=== PATIENT | female | born 1980 | race Caucasian/White ===

== ENCOUNTER 2020-08-06 18:44 | Emergency (ER) | payer BC, MEDICAID ==
[~2020-08-06] VITALS: Ht 162.6 cm; Wt 73.0 kg
[2020-08-06 20:34] LABS: BASOPHILS % 0.6 % (0.0-2.0); EOSINOPHILS % 0.8 % (0.0-5.0); HEMATOCRIT. 39.2 % (36.0-48.0); HEMOGLOBIN. 12.6 g/dL (12.0-16.0); LYMPHOCYTES % 28.5 % (20.0-50.0); MEAN CORPUSCULAR HEMOGLOBIN 28.1 pg (28.0-32.0); MEAN CORPUSCULAR VOLUME 87.6 fL (81.0-99.0); MEAN PLATELET VOLUME 8.6 fl (7.4-10.4); MONOCYTES % 5.3 % (2.0-8.0); NEUTROPHILS % 64.8 % (40.0-76.0); PLATELET 364 x1000/uL (130-400); RED BLOOD CELL COUNT 4.47 mill/uL (4.2-5.4); RED CELL DISTRIBUTION WIDTH 14.2 % (11.6-14.6)
[2020-08-06 20:41] LABS: CLARITY URINE CLEAR (CLEAR); COLOR URINE YELLOW (YELLOW); KETONES URINE NEGATIVE (NEGATIVE); LEUKOCYTE ESTERASE URINE TRACE (NEGATIVE); NITRITE URINE NEGATIVE (NEGATIVE); OCCULT BLOOD URINE NEGATIVE (NEGATIVE); PH URINE 7.5 (4.5-8.0); PROTEIN URINE NEGATIVE (NEGATIVE); SPECIFIC GRAVITY URINE 1.016 (1.005-1.030)
[2020-08-06 20:43] LABS: CHLORIDE 106 mEq/L (98-107)
[2020-08-06 20:52] LABS: PROTHROMBIN TIME 10.5 sec (9.6-11.0)
[2020-08-06] MEDS ORDERED: ACETAMINOPHEN 650MG/20.3ML UDC PO ONE (21:00)
[2020-08-06 21:03] LABS: HCG SCREEN NEGATIVE
[2020-08-06 22:42] VITALS: BP 117/76
== END 2020-08-06 23:03 | disposition home or self-care (01) ==
LOC: ER 18:44
DX: K81.9 Cholecystitis, unspecified (principal); E03.9 Hypothyroidism, unspecified; E28.2 Polycystic ovarian syndrome
CPT/HCPCS: 36415; 76705; 80053; 81003; 81025; 83605; 84703; 85025; 99284

== ENCOUNTER → 2020-08-25 | Outpatient (CLI) | payer BC ==
[~2020-08-25] MED LIST: CEFAZOLIN SODIUM 1000MG/VIAL ONE; DEXAMETHASONE 4MG/ML 1ML VIAL ONE; ETHI1TAB18 PO; FENTANYL CITRATE/PF 50MCG/ML 2ML VIAL ONE; GLYCOPYRROLATE 0.2 MG/ML 2ML VIAL ONE; KETOROLAC 30MG/ML VIAL ONE; LEVO50TA8 PO; LEVO75TA7 PO; MIDAZOLAM HCL 2 MG/2 ML VIAL ONE; NEOSTIGMINE METHYLSULFATE 1MG/ML 10 ML VIAL ONE; PHENYLEPHRINE HCL 10 MG/ML 1ML (IV VIAL) IV ONE; PROPOFOL 200MG/20ML VIAL IV ONE; SODIUM CHLORIDE 0.9% 10ML VIAL ONE; SUCCINYLCHOLINE CHLORIDE 200MG/10ML IV ONE; VECURONIUM BROMIDE 10 MG/VIAL IV ONE
== END | disposition home or self-care (01) ==
LOC: LAB 10:28
DX: Z01.812 Encounter for preprocedural laboratory examination (principal); Z20.822 Contact with and (suspected) exposure to COVID-19
CPT/HCPCS: 87426

== ENCOUNTER → 2020-08-26 | Day surgery (SDC) | payer BC ==
[~2020-08-26] VITALS: Ht 162.6 cm; Wt 70.3 kg
[~2020-08-26] MED LIST changes: +ACETAMINOPHEN 500MG TABLET PO NR; +BUPIVACAINE HCL 0.5% (5MG/ML) 50ML ONE; -CEFAZOLIN SODIUM 1000MG/VIAL ONE; -DEXAMETHASONE 4MG/ML 1ML VIAL ONE; -FENTANYL CITRATE/PF 50MCG/ML 2ML VIAL ONE; -GLYCOPYRROLATE 0.2 MG/ML 2ML VIAL ONE; -KETOROLAC 30MG/ML VIAL ONE; +LACTATED RINGERS 1,000 ML IV SCH; -MIDAZOLAM HCL 2 MG/2 ML VIAL ONE; -NEOSTIGMINE METHYLSULFATE 1MG/ML 10 ML VIAL ONE; -PHENYLEPHRINE HCL 10 MG/ML 1ML (IV VIAL) IV ONE; -PROPOFOL 200MG/20ML VIAL IV ONE; +SKIN ADHESIVE 0.7 GM EA TOP ONE; -SODIUM CHLORIDE 0.9% 10ML VIAL ONE; -SUCCINYLCHOLINE CHLORIDE 200MG/10ML IV ONE; -VECURONIUM BROMIDE 10 MG/VIAL IV ONE
[2020-08-26 06:25] LABS: UCG SCREEN NEGATIVE
[2020-08-26] MEDS: HYDROMORPHONE HCL/PF 2MG/ML CPJ IV PRN ×6 (09:07→10:14)
[2020-08-26 10:14] VITALS: BP 121/78
== END | disposition home or self-care (01) ==
LOC: OR 05:31
PROVIDERS: ATTEND Surgery
DX: K80.10 Calculus of gallbladder with chronic cholecystitis without obstruction (principal); E03.9 Hypothyroidism, unspecified; Z79.899 Other long term (current) drug therapy; Z98.890 Other specified postprocedural states
CPT/HCPCS: 47562; 81025; 88304; J0330; J0690; J1100; J1170; J1885; J2250; J2370; J2704; J2710; J3010; J3490

== ENCOUNTER 2020-11-21 12:37 | Emergency (ER) | payer BC ==
[~2020-11-21] VITALS: Ht 172.7 cm; Wt 65.0 kg
[~2020-11-21 12:37] MED LIST changes: -ACETAMINOPHEN 500MG TABLET PO NR; -BUPIVACAINE HCL 0.5% (5MG/ML) 50ML ONE; -LACTATED RINGERS 1,000 ML IV SCH; -SKIN ADHESIVE 0.7 GM EA TOP ONE
[2020-11-21 14:42] VITALS: BP 125/80
== END 2020-11-21 14:43 | disposition home or self-care (01) ==
LOC: ER 12:37
DX: S53.441A Ulnar collateral ligament sprain of right elbow, initial encounter (principal); X58.XXXA Exposure to other specified factors, initial encounter; Y93.89 Activity, other specified; Y92.89 Other specified places as the place of occurrence of the external cause; Y99.8 Other external cause status
CPT/HCPCS: 73110; 99283

== ENCOUNTER 2021-02-04 19:51 | Emergency (ER) | payer BC ==
[~2021-02-04] VITALS: Ht 162.6 cm; Wt 70.0 kg
[2021-02-04 21:07] LABS: CLARITY URINE CLEAR (CLEAR); COLOR URINE YELLOW (YELLOW); KETONES URINE NEGATIVE (NEGATIVE); LEUKOCYTE ESTERASE URINE NEGATIVE (NEGATIVE); NITRITE URINE NEGATIVE (NEGATIVE); OCCULT BLOOD URINE NEGATIVE (NEGATIVE); PH URINE 5.5 (4.5-8.0); PROTEIN URINE NEGATIVE (NEGATIVE); SPECIFIC GRAVITY URINE 1.005 (1.005-1.030); UROBILINOGEN URINE 0.2 E.U./dL (0.2-1.0)
[2021-02-04 21:11] LABS: BASOPHILS % 0.7 % (0.0-2.0); EOSINOPHILS % 1.3 % (0.0-5.0); HEMATOCRIT. 35.2 % (36.0-48.0); HEMOGLOBIN. 11.9 g/dL (12.0-16.0); LYMPHOCYTES % 37.5 % (20.0-50.0); MEAN CORPUSCULAR HEMOGLOBIN 29.6 pg (28.0-32.0); MEAN CORPUSCULAR VOLUME 87.5 fL (81.0-99.0); MEAN PLATELET VOLUME 8.6 fl (7.4-10.4); MONOCYTES % 5.6 % (2.0-8.0); NEUTROPHILS % 54.9 % (40.0-76.0); PLATELET 337 x1000/uL (130-400); RED BLOOD CELL COUNT 4.02 mill/uL (4.2-5.4); RED CELL DISTRIBUTION WIDTH 13.7 % (11.6-14.6)
[2021-02-04 21:21] LABS: CHLORIDE 102 mEq/L (98-107)
[2021-02-04 21:45] VITALS: BP 121/69
== END 2021-02-04 22:00 | disposition home or self-care (01) ==
LOC: ER 20:37
DX: R55 Syncope and collapse (principal); Z20.822 Contact with and (suspected) exposure to COVID-19; E03.9 Hypothyroidism, unspecified; Z90.49 Acquired absence of other specified parts of digestive tract
CPT/HCPCS: 36415; 80053; 81003; 81025; 84439; 84443; 84484; 85025; 93005; 99284; C9803; U0003; U0005